=== PATIENT | male | born 1970 | race African-American/Black ===

== ENCOUNTER 2020-10-09 17:19 | Emergency (ER) | payer OTHER ==
[2020-10-09 17:28] VITALS: BP 133/87; PULSE 71; RESP 16; TEMP 98
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
[2020-10-09] MEDS ORDERED: KETOROLAC 15 MG/ML 1 ML VIAL IM STA (19:28)
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
== END 2020-10-09 19:45 | disposition home or self-care (01) ==
LOC: EC 17:19
DX: S13.4XXA Sprain of ligaments of cervical spine, initial encounter (principal); M54.6 Pain in thoracic spine; Z88.6 Allergy status to analgesic agent; V43.52XA Car driver injured in collision with other type car in traffic accident, initial encounter; Y92.410 Unspecified street and highway as the place of occurrence of the external cause
CPT/HCPCS: 72070; 71046; 72125; 70450; 99285; 96372; J1885

== ENCOUNTER → 2021-05-23 | Outpatient (CLI) | payer OTHER ==
[2021-05-23 10:08] LABS: Basophils % (A) 1 %; Eosinophils # (A) 0.2 k/uL (0-0.7); Eosinophils % (A) 4 %; HCT 39.6 % (39.0-53.0); HGB 12.3 gm/dL (13.0-17.5); Lymphocytes # (A) 2.3 k/uL (1.0-4.8); Lymphocytes % (A) 46 %; MCH 23.5 pg (25.0-35.0); Mean Platelet Volume 6.9; Microcytosis Slight; Monocytes # (A) 0.3 k/uL (0-1.0); Monocytes % (A) 6 %; Neutrophils % (A) 40 %; Platelet Count 173 k/uL (150-450); RBC 5.21 m/uL (4.30-5.90); RDW 15.9 % (11.5-15.5); WBC 4.9 k/uL (3.8-10.6)
== END | disposition home or self-care (01) ==
LOC: LABPAT 08:56
PROVIDERS: ATTEND Surgery
DX: Z01.812 Encounter for preprocedural laboratory examination (principal)
CPT/HCPCS: 36415; 85025

== ENCOUNTER 2021-06-15 08:49 | Day surgery (SDC) | payer OTHER ==
[2021-06-14 09:53] VITALS: BMI 26.3
[2021-06-15 06:49] VITALS: RESP 16; TEMP 98.1
[2021-06-15 07:44] LABS: African American GFR (CKD) >90 (>60 ml/min/1.73 sqM); Anion Gap 8 mmol/L; Blood Urea Nitrogen 14 mg/dL (9-20); Calcium 9.5 mg/dL (8.4-10.2); Carbon Dioxide 24 mmol/L (22-30); Chloride 106 mmol/L (98-107); Glucose 93 mg/dL (74-99); Non-African American GFR(CKD) >90 (>60 ml/min/1.73 sqM); Potassium 4.5 mmol/L (3.5-5.1); Sodium 138 mmol/L (137-145)
[~2021-06-15 08:49] MED LIST: ALPRAZolam 0.25 MG TAB PO PRN; ALPRAZolam 0.5 MG TAB PO PRN; ASPIRIN 325 MG TAB PO STA; ATORVASTATIN 80 MG TAB PO STA; HEPARIN SODIUM 1,000 UN/ML (10ML VL) IV ONE; HEPARIN SODIUM 1,000 UN/ML (10ML VL) ONE; HEPARIN SODIUM,PORCINE 10,000 UNIT in SODIUM CHLORIDE 0.9% 1,000 ML IRRIGATION PRN; HEPARIN SODIUM,PORCINE 2,500 UNIT in SODIUM CHLORIDE 0.9% 250 ML IRRIGATION PRN; IOPAMIDOL-370 125ML BTL INJ ONE; LIDOCAINE 1% INJ 10MG/ML (20 ML MDV) ONE; LIDOCAINE 1% INJ 10MG/ML (20 ML MDV) SQ ONE; MIDAZOLAM 2 MG/2 ML VIAL IV ONE; NITROGLYCERIN SL TABS 0.4 MG TAB SUBLINGUAL PRN; RX INFO: IV CONTRAST WAS GIVEN 1 EACH MISC MISCELLANE PRN; SODIUM CHLORIDE 0.9% 1,000 ML IV ONE; SODIUM CHLORIDE 0.9% 1,000 ML in EMPTY BAG 1 BAG IV SCH; VERAPAMIL 2.5 MG/ML 2 ML AMP ONE; VERAPAMIL SYRINGE (5 MG/10 ML) INTRAARTER ONE; fentaNYL (PF) 50 MCG/ML 2 ML AMP IV ONE; fentaNYL (PF) 50 MCG/ML 2 ML AMP ONE
[2021-06-15] MEDS ORDERED: ACETAMINOPHEN TAB 500 MG TAB PO ONE (10:38)
[2021-06-15 10:41] VITALS: BP 126/62
[2021-06-15 15:29] VITALS: PULSE 62
--- NOTE | 2021-06-15 20:59 | P.CARDCATH ---
Description of Procedure: PROCEDURES PERFORMED: Left heart catheterization, bilateral coronary angiography INDICATION: Abnormal stress test HISTORY: Patient is a pleasant 51-year-old male with history of tobacco/ marijuana abuse who has been having chest pain and SOB with exertion. He had stress test which showed no inducible ischemia however he did have chest pain on the treadmill. Therefore heart catheterization was recommended. CONSENT:I have discussed the risks, benefits and alternative therapies for the above-mentioned procedure and for both sedation/analgesia as well as necessary blood product administration, if indicated, as they pertain to this patient. The patient has indicated understanding and acceptance of the risks and procedures discussed. PROCEDURE: After the risks, benefits and alternatives of the above mentioned procedure explained in detail with the patient, informed consent was obtained. Patient was taken to the catheterization lab and prepped and draped in usual fashion. 1% lidocaine was used to anesthetize the right radial artery. A 6- [place] sheath was placed in the right radial artery using modified Seldinger te chnique. Left coronary angiography was performed with a 6-[place] JL 3.5 catheter and right coronary angiography was performed with a 5-[place] JR5 catheter in various views. A 5-[place] FR5 catheter was inserted into the left ventricle and pressure measurements were obtained. The right radial sheath was removed and a TR band was placed with hemostasis achieved. The patient tolerated the procedure well. Patient was transported back to the post catheterization holding area in stable condition. Conscious Sedation: Patient was monitored under the direct supervision of vision of myself for conscious sedation using Versed and fentanyl for a total duration of 25 minutes HEMODYNAMICS: Ao: 144/84 LV: 144/2, LVEDP 14 SELECTIVE CORONARY ARTERIOGRAPHY: LEFT MAIN: The left main is a large caliber vessel which bifurcates into the LAD and circumflex. There is no significant stenosis. LEFT ANTERIOR DESCENDING CORONARY ARTERY: LAD is a large caliber vessel which wraps around to the apex. There is no significant stenosis. LEFT CIRCUMFLEX CORONARY ARTERY: Left circumflex is a moderate caliber vessel without significant stenosis. RIGHT CORONARY ARTERY: The right coronary artery is a large caliber vessel which gives off a PDA and PLV branch and is the dominant vessel. There is no significant stenosis. FINAL IMPRESSION: 1. Normal coronary arteries. 2. Normal left sided filling pressures PLAN: 1. Aggressive risk factor modification per most recent ACC/AHA guidelines. 2. Follow-up in the office in 1-2 weeks.
== END 2021-06-15 11:30 | disposition home or self-care (01) ==
LOC: CATHCVL 08:49
PROVIDERS: ATTEND Internal Medicine
DX: R07.9 Chest pain, unspecified (principal); R06.02 Shortness of breath; R94.39 Abnormal result of other cardiovascular function study; Z82.49 Family history of ischemic heart disease and other diseases of the circulatory system; Z88.6 Allergy status to analgesic agent; Z91.09 Other allergy status, other than to drugs and biological substances
CPT/HCPCS: 93458; 80048; 87635; C1894; J2250; J2001; J3010; J1644; Q9967

== ENCOUNTER 2023-08-07 19:36 | Emergency (ER) | payer OTHER ==
[2023-08-07] MEDS ORDERED: MAG HYDROX/AL HYDROX/SIMETH 30 ML, HYOSCYAMINE ELIXIR 10 ML, LIDOCAINE 2% GLYDO JELLY 1... PO STA ×3 (21:09)
--- NOTE | 2023-08-07 21:12 | ED ---
General Adult HPI - General Chief complaint: Recheck/Abnormal Lab/Rx Stated complaint: hiccups Time Seen by Provider: 08/07/23 20:55 Source: patient, family, RN notes reviewed, old records reviewed Mode of arrival: ambulatory - History of Present Illness Initial comments: 53-year-old male patient, alert and oriented 4 presents to the emergency room with complaints of hiccups for 3 days. Patient states that he was seen at urgent care on Saturday and diagnosed with tonsillitis. At that time he was given cefdinir and prednisone. Patient states that he took the medication and then developed hiccups which he has not been able to control, along with heartburn. Did see his primary care doctor today and was prescribed omeprazole which he has not started taking. He was taking Pepcid at home and Tums with no relief. Tried many home remedies with no relief of hiccups. States hasn't been able to sleep. He denies any medical history. He does smoke marijuana. -: days(s) (3) Location: abdomen (epigastric) Severity scale (1-10): 0 Quality: burning Consistency: now resolved Improves with: none Worsens with: medication (cefdinir and prednisone) Treatments Prior to Arrival: other (omeprazole hasn't started it yet) - Related Data Home Medications Medication Instructions Recorded Confirmed Aspirin 81 mg PO DAILY 06/14/21 06/15/21 Ergocalciferol [Vitamin D2 (1250 1,250 mcg PO WE 06/14/21 06/15/21 Mcg = 96402 Iu)] Ferrous Sulfate [Iron] 325 mg PO DAILY 06/14/21 06/15/21 Allergies Allergy/AdvReac Type Severity Reaction Status Date / Time aspirin AdvReac Rapid Verified 08/07/23 19:49 Heart Rate Review of Systems ROS Statement: Those systems with pertinent positive or pertinent negative responses have been documented in the HPI. ROS Other: All systems not noted in ROS Statement are negative. Past Medical History Past Medical History: No Reported History Additional Past Medical History / Comment(s): See Dr Beauchamp's H&P. Abnormal EKG. "Stress Test okay". History of Any Multi-Drug Resistant Organisms: None Reported Past Surgical History: No Surgical Hx Reported Additional Past Surgical History / Comment(s): Colonoscopy. Past Anesthesia/Blood Transfusion Reactions: No Reported Reaction Past Psychological History: No Psychological Hx Reported Smoking Status: Never smoker Past Alcohol Use History: Rare Past Drug Use History: Marijuana - Past Family History Brother(s) Family Medical History: Cancer General Exam Limitations: no limitations General appearance: alert, in no apparent distress Head exam: Present: atraumatic, normocephalic Eye exam: Absent: scleral icterus, conjunctival injection, periorbital swelling ENT exam: Present: normal oropharynx, mucous membranes moist Neck exam: Present: normal inspection, full ROM. Absent: tenderness, meningismus, lymphadenopathy Respiratory exam: Present: normal lung sounds bilaterally. Absent: respiratory distress, accessory muscle use Cardiovascular Exam: Present: regular rate, normal rhythm, normal heart sounds GI/Abdominal exam: Present: soft. Absent: distended, tenderness, guarding, saida ound, rigid Extremities exam: Present: full ROM, normal capillary refill. Absent: tenderness, pedal edema, calf tenderness Neurological exam: Present: alert, oriented X3 Psychiatric exam: Present: normal affect, normal mood Skin exam: Present: warm, dry, normal color. Absent: cyanosis, diaphoretic, petechiae, pallor Course Vital Signs 08/07/23 08/07/23 19:47 21:31 Temperature 98.3 F 98.2 F Pulse Rate 62 60 Respiratory 18 17 Rate Blood Pressure 114/67 112/60 O2 Sat by Pulse 100 97 Oximetry Medical Decision Making - Medical Decision Making Was pt. sent in by a medical professional or institution (, ERIC, DATABASE ADMINISTRATOR, urgent care, hospital, or [facility]...) When possible be specific @ -No Did you speak to anyone other than the patient for history (EMS, parent, family, police, friend...)? What history was obtained from this source @ -No Did you review nursing and triage notes (agree or disagree)? Why? @ -I reviewed and agree with nursing and triage notes Were old charts reviewed (outside hosp., previous admission, EMS record, old EK G, old radiological studies, urgent care reports/EKG's, [facility] records)? Report findings @ -Stress test report Dr. Beauchamp June 2021normal Differential Diagnosis (chest pain, altered mental status, abdominal pain women, abdominal pain men, vaginal bleeding, weakness, fever, dyspnea, syncope, headache, dizziness, GI bleed, back pain, seizure, CVA, palpatations, mental health, musculoskeletal)? @ -Gastritis, dyspepsia, esophagitis, adverse reaction to medication EKG interpreted by me (3pts min.). @ -n/a X-rays interpreted by me (1pt min.). @ -None done CT interpreted by me (1pt min.). @ -None done U/S interpreted by me (1pt. min.). @ -None done What testing was considered but not performed or refused? (CT, X-rays, U/S, labs)? Why? @ -None What meds were considered but not given or refused? Why? @ -Thorazine was considered however patient hiccups had resolved Did you discuss the management of the patient with other professionals (professionals i.e. , PA, DATABASE ADMINISTRATOR, lab, RT, psych nurse, social welfare administrator, avionics systems technician, teacher, tactical deception plans officer, upper caser)? Give summary @ -No Was smoking cessation discussed for >3mins.? @ -No Was critical care preformed (if so, how long)? @ -No Were there social determinants of health that impacted care today? How? (Homelessness, low income, unemployed, alcoholism, drug addiction, transportation, low edu. Level, literacy, decrease access to med. care, assisted, rehab)? @ -No Was there de-escalation of care discussed even if they declined (Discuss DNR or withdrawal of care, Hospice)? DNR status @ -No What co-morbidities impacted this encounter? (DM, HTN, Smoking, COPD, CAD, Cancer, CVA, ARF, Chemo, Hep., AIDS, mental health diagnosis, sleep apnea, morb id obesity)? @ -None Was patient admitted / discharged? Hospital course, mention meds given and route, prescriptions, significant lab abnormalities, going to OR and other pertinent info. @ Discharged 53-year-old male patient, alert and oriented 4 presents to the emergency room with complaints of hiccups for 3 days. Patient states that he was seen at urgent care on Saturday and diagnosed with tonsillitis. At that time he was given cefdinir and prednisone. Patient states that he took the medication and then developed hiccups which he has not been able to control, along with heartburn. Did see his primary care doctor today and was prescribed omeprazole which he has not started taking. He was taking Pepcid at home and Tums with no relief. Tried many home remedies with no relief of hiccups. States hasn't been able to sleep. He denies any medical history. He does smoke marijuana. States only medication he is taking at this time is the cefdinir and prednisone for tonsillitis On physical exam patient has no hiccups at this time. Abdomen is soft and nontender. Vital signs are stable. Patient denies any chest pain or shortness of breath. Oropharynx is without erythema or exudates. No cervical lymphadenopathy. He was directed to take the omeprazole as prescribed by his primary care doctor. I explained that hiccups can be the result of gastritis or GERD which treatment with omeprazole will help. I encouraged him to take the medication and f/u with his PCP. I did provide GI cocktail for his complaints of heartburn. He did have a stress test with Dr. Beauchamp in June 2021 and was normal. Patient and family member agreeable to this plan of care. Patient was discharged without hiccups. Case discussed with Dr. Quezada Undiagnosed new problem with uncertain prognosis? @ -No Drug Therapy requiring intensive monitoring for toxicity (Heparin, Nitro, Insuli n, Cardizem)? @ -No Were any procedures done? @ -No Diagnosis/symptom? @ -Dyspepsia Acute, or Chronic, or Acute on Chronic? @ -Acute Uncomplicated (without systemic symptoms) or Complicated (systemic symptoms)? @ -Uncomplicated Side effects of treatment? @ -No Exacerbation, Progression, or Severe Exacerbation? @ -No Poses a threat to life or bodily function? How? (Chest pain, USA, MS, pneumonia, PE, COPD, DKA, ARF, appy, cholecystitis, CVA, Diverticulitis, Homicidal, Suicidal, threat to staff... and all critical care pts) @ -No Disposition Clinical Impression: Dyspepsia Disposition: HOME SELF-CARE Condition: Good Instructions (If sedation given, give patient instructions): Hiccups (ED), Indigestion (ED) Is patient prescribed a controlled substance at d/c from ED?: No Referrals: Rebel Rosenthal MD [Primary Care Provider] - 1-2 days Time of Disposition: 21:21
[2023-08-07] MEDS ORDERED: SODIUM CHLORIDE 0.9% IRRIGATIO 3,000 ML IRRIGATION ONE (21:19)
[2023-08-07 22:26] VITALS: BP 112/60; PULSE 60; RESP 17; TEMP 98.2
== END 2023-08-07 21:30 | disposition home or self-care (01) ==
LOC: EC 19:36
DX: R10.13 Epigastric pain (principal); F12.90 Cannabis use, unspecified, uncomplicated; Z88.6 Allergy status to analgesic agent
CPT/HCPCS: 99283

== ENCOUNTER → 2023-10-21 | Outpatient (CLI) | payer OTHER ==
[2023-10-21 16:10] LABS: Hepatitis B Surface Antigen Nonreactive
[2023-10-21 16:29] LABS: Hepatitis B Surface AB- Quant 3.5 mIU/mL
== END | disposition home or self-care (01) ==
LOC: LABWHC1 10:46
PROVIDERS: ATTEND Family Medicine
DX: A63.0 Anogenital (venereal) warts (principal)
CPT/HCPCS: 36415; 86704; 86706; 87340

== ENCOUNTER → 2024-04-27 | Outpatient (CLI) | payer OTHER ==
--- NOTE | 2024-04-27 12:54 | XR ---
EXAMINATION TYPE: XR clavicle LT DATE OF EXAM: 04/27/2024 12:39 PM CLINICAL INDICATION: Male, 53 years old with history of S42.92XA R/O Fracture left shoulder/Clavicle; [facility] COMPARISON: None TECHNIQUE: XR clavicle LT examined in AP and cephalic tilt views . FINDINGS: No evidence of acute or chronic osseous pathology, joint dislocation or soft tissue swelling. IMPRESSION: Normal clavicle.
--- NOTE | 2024-04-27 12:55 | XR ---
EXAMINATION TYPE: XR shoulder complete LT DATE OF EXAM: 04/27/2024 12:39 PM CLINICAL INDICATION: Male, 53 years old with history of S42.92XA R/O Fracture left shoulder/Clavicle; COMPARISON: None TECHNIQUE: XR shoulder complete LT; examined in AP, internally rotated and scapular Y projections. FINDINGS: No evidence of acute osseous pathology, joint dislocation, or soft tissue swelling. The remaining po rtions of the visualized chest are unremarkable. IMPRESSION: No acute osseous pathology.
== END | disposition home or self-care (01) ==
LOC: RADXRMAIN 11:54
PROVIDERS: ATTEND Family Medicine
DX: S42.92XA Fracture of left shoulder girdle, part unspecified, initial encounter for closed fracture

== ENCOUNTER 2024-07-21 16:34 | Emergency (ER) | payer OTHER ==
--- NOTE | 2024-07-21 17:09 | ED ---
Headache HPI - History of Present Illness MD Complaint: headache Onset/Timin -: days(s) <Shine Montelongo - Last Filed: 07/21/24 17:07> <Quinn Rouse - Last Filed: 08/02/24 07:31> - General Stated Complaint: BODY ACHE FEVER - History of Present Illness Initial Comments: Quick note: This is a 54-year-old male complaining of headache (10 out of 10), body aches and sweating x 3 days. Patient states the pain is located on the crown of his head. Patient also endorses chest pain and shortness of breath. Denies radiating pain, dizziness, nausea, vomiting. Endorses use of Motrin with no relief. Patient denies recent sick contacts. (Shine Montelongo) - Related Data Home Medications Medication Instructions Recorded Confirmed Aspirin 81 mg PO DAILY 06/14/21 06/15/21 Ergocalciferol [Vitamin D2 (1250 1,250 mcg PO WE 06/14/21 06/15/21 Mcg = 18750 Iu)] Ferrous Sulfate [Iron] 325 mg PO DAILY 06/14/21 06/15/21 Allergies Allergy/AdvReac Type Severity Reaction Status Date / Time aspirin AdvReac Rapid Verified 07/21/24 17:13 Heart Rate Review of Systems ROS Other: All systems not noted in ROS Statement are negative. <Shine Montelongo - Last Filed: 07/21/24 17:07> ROS Other: All systems not noted in ROS Statement are negative. <Quinn Rouse - Last Filed: 08/02/24 07:31> ROS Statement: Those systems with pertinent positive or pertinent negative responses have been documented in the HPI. Past Medical History Past Medical History: No Reported History Additional Past Medical History / Comment(s): See Dr Beauchamp's H&P. Abnormal EKG. "Stress Test okay". History of Any Multi-Drug Resistant Organisms: None Reported Past Surgical History: No Surgical Hx Reported Additional Past Surgical History / Comment(s): Colonoscopy. Past Anesthesia/Blood Transfusion Reactions: No Reported Reaction Past Psychological History: No Psychological Hx Reported Smoking Status: Never smoker Past Alcohol Use History: Rare Past Drug Use History: Marijuana - Past Family History Brother(s) Family Medical History: Cancer <Shine Montelongo - Last Filed: 07/21/24 17:07> General Exam <Shine Montelongo - Last Filed: 07/21/24 17:07> - General Exam Comments Initial Comments: Visual Physical Exam Vital signs reviewed General: Well-appearing, nontoxic, no acute distress. Head: Normocephalic, atraumatic Eyes: PERRLA, EOMI ENT: Airway patent Chest: Nonlabored breathing Skin: No visual rash, normal skin tone Neuro: Alert and oriented 3 Musculoskeletal: No gross abnormalities (Shine Montelongo) Course Vital Signs 07/21/24 17:13 Temperature 98.4 F Pulse Rate 73 Respiratory 20 Rate Blood Pressure 132/71 O2 Sat by Pulse 99 Oximetry Medical Decision Making <Shine Montelongo - Last Filed: 07/21/24 17:07> - Medical Decision Making I completed the quick note portion of this chart signed CHEMA You (Shine Montelongo) Disposition <Shine Montelongo - Last Filed: 07/21/24 17:07> <Quinn Rouse - Last Filed: 08/02/24 07:31> Clinical Impression: Headache Disposition: LEFT AGAINST MEDICAL ADVICE Referrals: Rebel Rosenthal MD [Primary Care Provider] - 1-2 days
[2024-07-21 17:17] VITALS: BP 132/71; PULSE 73; RESP 20; TEMP 98.4
--- NOTE | 2024-07-21 17:48 | XR ---
EXAMINATION TYPE: XR chest 2V DATE OF EXAM: 07/21/2024 5:44 PM COMPARISON: Chest radiographs from 10/09/2020 CLINICAL INDICATION: Male, 54 years old with history of Chest pain, shortness of breath; [facility] TECHNIQUE: XR chest 2V Frontal and lateral views of the chest. FINDINGS: Lungs/Pleura: There is no evidence of pleural effusion, focal consolidation, or pneumothorax. Pulmonary vascularity: Unremarkable. Heart/mediastinum: Cardiomediastinal silhouette is unremarkable. Musculoskeletal: No acute osseous pathology. IMPRESSION: No acute cardiopulmonary disease/process. [facility] Bhaskar Fulton, , 07/21/2024 5:46 PM
== END 2024-07-21 19:00 | disposition left against medical advice (07) ==
LOC: EC 16:34
DX: R51.9 Headache, unspecified (principal); Z88.6 Allergy status to analgesic agent; Z53.29 Procedure and treatment not carried out because of patient's decision for other reasons
CPT/HCPCS: 71046; 99283

== ENCOUNTER 2024-08-24 13:04 | Day surgery (SDC) | payer OTHER ==
[2024-08-20 15:32] VITALS: BMI 26.6
[~2024-08-24 13:04] MED LIST changes: -ALPRAZolam 0.25 MG TAB PO PRN; -ALPRAZolam 0.5 MG TAB PO PRN; -ASPIRIN 325 MG TAB PO STA; -ATORVASTATIN 80 MG TAB PO STA; -HEPARIN SODIUM 1,000 UN/ML (10ML VL) IV ONE; -HEPARIN SODIUM 1,000 UN/ML (10ML VL) ONE; -HEPARIN SODIUM,PORCINE 10,000 UNIT in SODIUM CHLORIDE 0.9% 1,000 ML IRRIGATION PRN; -HEPARIN SODIUM,PORCINE 2,500 UNIT in SODIUM CHLORIDE 0.9% 250 ML IRRIGATION PRN; -IOPAMIDOL-370 125ML BTL INJ ONE; +LIDOCAINE 1% (10MG/ML) FOR IV START INTRADERMA PRN; -LIDOCAINE 1% INJ 10MG/ML (20 ML MDV) ONE; -LIDOCAINE 1% INJ 10MG/ML (20 ML MDV) SQ ONE; -MIDAZOLAM 2 MG/2 ML VIAL IV ONE; -NITROGLYCERIN SL TABS 0.4 MG TAB SUBLINGUAL PRN; -RX INFO: IV CONTRAST WAS GIVEN 1 EACH MISC MISCELLANE PRN; -SODIUM CHLORIDE 0.9% 1,000 ML IV ONE; -SODIUM CHLORIDE 0.9% 1,000 ML in EMPTY BAG 1 BAG IV SCH; -VERAPAMIL 2.5 MG/ML 2 ML AMP ONE; -VERAPAMIL SYRINGE (5 MG/10 ML) INTRAARTER ONE; -fentaNYL (PF) 50 MCG/ML 2 ML AMP IV ONE; -fentaNYL (PF) 50 MCG/ML 2 ML AMP ONE
[2024-08-24 13:41] VITALS: TEMP 97.3
[2024-08-24] MEDS: LACTATED RINGERS 1,000 ML IV SCH (13:42)
[2024-08-24] MEDS: IV FLUID CONTINUATION 1,000 ML IV ONE ×2 (13:43→14:42)
[2024-08-24] MEDS ORDERED: LIDOCAINE 1% INJ 10MG/ML (20 ML MDV) ONE (14:46)
[2024-08-24] MEDS ORDERED: PROPOFOL 10 MG/ML 20 ML VIAL IV ONE (14:46)
--- NOTE | 2024-08-24 14:48 | P.GSHP ---
History of Present Illness H&P Date: 08/24/24 Chief Complaint: Epigastric abdominal pain This 54-year-old male with complaints of epigastric Pranay pain and gerd. Patient presents today for EGD. Past Medical History Past Medical History: No Reported History Additional Past Medical History / Comment(s): See Dr Beauchamp's H&P. Abnormal EKG. "Stress Test okay". History of Any Multi-Drug Resistant Organisms: None Reported Past Surgical History: No Surgical Hx Reported Additional Past Surgical History / Comment(s): Colonoscopy. Past Anesthesia/Blood Transfusion Reactions: No Reported Reaction Additional Past Anesthesia/Blood Transfusion Reaction / Comment(s): no blood transfusion Smoking Status: Current every day smoker - Past Family History Brother(s) Family Medical History: Cancer Additional Family Medical History / Comment(s): pancreas Medications and Allergies Home Medications Medication Instructions Recorded Confirmed Type ALPRAZolam [Xanax] 0.5 mg PO HS PRN 08/20/24 08/24/24 History Allergies Allergy/AdvReac Type Severity Reaction Status Date / Time aspirin AdvReac Rapid Verified 08/20/24 15:29 Heart Rate Surgical - Exam Vital Signs Temp Pulse Resp BP Pulse Ox 97.3 F L 52 L 18 136/65 100 08/24/24 13:29 08/24/24 13:29 08/24/24 13:29 08/24/24 13:29 08/24/24 13:29 - General well developed, well nourished, no distress - Eyes PERRL - ENT normal pinna - Neck no masses - Respiratory normal expansion - Cardiovascular Rhythm: regular - Abdomen Abdomen: soft, non tender Assessment and Plan Assessment: Epigastric Pranay pain, gerd. Will perform EGD.
--- NOTE | 2024-08-24 14:59 | P.OP ---
Date of Procedure: 08/24/24 Preoperative Diagnosis: Gerd Postoperative Diagnosis: Antral gastritis Esophagitis Sliding hiatal hernia Procedure(s) Performed: EGD Anesthesia: MAC Surgeon: Se Khalil Pathology: other (Antrum, esophagus) Condition: stable Disposition: PACU Description of Procedure: The patient is placed on the endoscopy table in the lateral position. He received IV sedation. The gastric was placed oropharynx passed in the esophagus and the stomach. Scope was in place through the pylorus. The first and second portion of the duodenum appeared normal. The scope was then brought back to the antrum this appeared mildly Flaim. A biopsy was performed. The scope was then retroflexed and the Mainer of the stomach appeared normal. The GE junction was at 38 cm. The distal esophagus appeared mildly inflamed. There was a small sliding hiatal hernia. The distal esophagus was biopsied. The proximal esoph madie appeared normal. Scope withdrawn the patient.
[2024-08-24 15:09] VITALS: RESP 16
[2024-08-24 15:34] VITALS: BP 142/74; PULSE 62
== END 2024-08-24 13:49 | disposition home or self-care (01) ==
LOC: ORWHC2ENDO 13:04
PROVIDERS: ATTEND Surgery
DX: K29.50 Unspecified chronic gastritis without bleeding (principal); K29.80 Duodenitis without bleeding; K21.00 Gastro-esophageal reflux disease with esophagitis, without bleeding; K44.9 Diaphragmatic hernia without obstruction or gangrene; F17.200 Nicotine dependence, unspecified, uncomplicated; F12.90 Cannabis use, unspecified, uncomplicated; Z88.6 Allergy status to analgesic agent; Z79.899 Other long term (current) drug therapy
CPT/HCPCS: 88305; 43239; J2003; J2704

== ENCOUNTER → 2024-11-27 | Outpatient (CLI) | payer OTHER ==
[2024-11-27 15:02] LABS: HCT 37.1 % (39.6-50.0); HGB 11.7 g/dL (13.0-17.0); MCH 22.3 pg (27.0-32.0); MCHC 31.5 g/dL (32.0-37.0); MCV 70.7 FL (80.0-97.0); Mean Platelet Volume 10.8 FL (9.5-12.2); NRBC Per 100 WBC 0 X 10*3/uL (0.00-0.01); Platelet Count 255 X 10*3/uL (140-440); RBC 5.25 X 10*6/uL (4.40-5.60); RDW 15.3 % (11.5-14.5); WBC 7.49 X 10*3/uL (4.50-10.00)
[2024-11-27 15:33] LABS: ALT 12 U/L (10-49); AST 23 U/L (14-35); Albumin/Globulin Ratio 1.54 Ratio (1.60-3.17); Alkaline Phosphatase 89 U/L (41-126); BUN/Creat Ratio 8.33 Ratio (12.00-20.00); Calcium 8.9 mg/dL (8.7-10.3); Carbon Dioxide 24.2 mmol/L (21.6-31.8); Chloride 104 mmol/L (96-109); Globulin 2.6 g/dL (1.6-3.3); Glucose 117 mg/dL (70-110); Lipase 81 U/L (14-60); Potassium 4.6 mmol/L (3.5-5.5); Sodium 138 mmol/L (135-145); Total Bilirubin 0.4 mg/dL (0.3-1.2); Total Protein 6.6 g/dL (6.2-8.2)
== END | disposition home or self-care (01) ==
LOC: LABWHC1 10:17
PROVIDERS: ATTEND Family Medicine
DX: I10 Essential (primary) hypertension (principal); B89 Unspecified parasitic disease; Z79.899 Other long term (current) drug therapy
CPT/HCPCS: 36415; 80053; 83690; 85027

== ENCOUNTER → 2024-12-10 | Outpatient (CLI) | payer OTHER ==
--- NOTE | 2024-12-10 10:48 | XR ---
EXAMINATION TYPE: XR abdomen 1V DATE OF EXAM: 12/10/2024 10:27 AM COMPARISON: None. CLINICAL INDICATION: Male, 54 years old with history of R10.9 Abdominal pain, TECHNIQUE: XR abdomen 1V view(s) obtained. FINDINGS: There is a normal bowel gas pattern. Psoas margins are normal. No organomegaly is present. IMPRESSION: 1. Unremarkable Abdomen [facility], , 12/10/2024 10:46 AM
--- NOTE | 2024-12-10 10:52 | XR ---
EXAMINATION TYPE: XR knee limited RT DATE OF EXAM: 12/10/2024 10:27 AM COMPARISON: None. CLINICAL INDICATION: Male, 54 years old with history of M25.561 OA, pain TECHNIQUE: 2 view(s) obtained. FINDINGS: No acute fracture or dislocation evident. Joint spaces appear preserved. There is an anterior superio r patellar spur present. Small joint effusion is present. Follow-up MRI can be performed as clinicall y indicated. IMPRESSION: 1. Small joint effusion. 2. No acute osseous abnormality radiographically apparent [facility], , 12/10/2024 10:50 AM
== END | disposition home or self-care (01) ==
LOC: RADXRMAIN 10:07
PROVIDERS: ATTEND Family Medicine
DX: M25.461 Effusion, right knee (principal); R10.9 Unspecified abdominal pain
CPT/HCPCS: 74018

== ENCOUNTER → 2024-12-29 | Outpatient (CLI) | payer OTHER ==
--- NOTE | 2024-12-29 15:05 | CT ---
EXAMINATION TYPE: CT abdomen wo con DATE OF EXAM: 12/29/2024 COMPARISON: 05/12/2013 CLINICAL INDICATION: Male, 54 years old with history of K59.00 CONTIPATION R10.84 GEN ABD PAIN; [facility], ABD PAIN TECHNIQUE: CT of the abdomen performed with with Oral Contrast and , patient injected with mL of . CT DLP: 191.[address] CTDI: mGy Automated exposure control for dose reduction was used. Findings: The lungs are clear. There is mild cardiomegaly. Gallbladder is mildly contracted but there are no gallstones. There is no biliary ductal dilatation. There is no organomegaly of the liver, pancreas, spleen or adrenal glands. There are no renal calcifications or hydronephrosis. The caliber of the abdominal aorta is normal and there is no retroperitoneal adenopathy or hemorrhage . The bowel loops are normal in caliber is no evidence of obstruction. No inflammatory changes are iden tified in the mesentery and there is no free intraperitoneal air or fluid. The osseous structures and soft tissues are unremarkable. IMPRESSION: No significant abnormality seen. [facility], , 12/29/2024 3:03 PM
== END | disposition home or self-care (01) ==
LOC: RADCTMAIN 13:34
PROVIDERS: ATTEND Family Medicine
DX: K59.00 Constipation, unspecified (principal)
CPT/HCPCS: 74150